=== PATIENT | female | born 1955 | race Caucasian/White ===

== ENCOUNTER 2025-07-15 11:40 | Outpatient (CLI) | payer MEDICARE ==
--- NOTE | 2025-07-15 12:36 | RADIOLOGY REPORT ---
CLINICAL INDICATION: PAIN JOINT RIGHT KNEE TECHNIQUE: 3 radiographic views of the right knee were obtained. Comparison: None FINDINGS/IMPRESSION: There is no evidence of acute fracture or dislocation. The visualized joint space is well maintained. The alignment is anatomical. There is no radiopaque foreign body.
== END 2025-07-15 23:59 | disposition home or self-care (01) ==
LOC: RAD 11:40
PROVIDERS: ATTEND Physician Assistant
DX: M25.561 Pain in right knee (principal)
CPT/HCPCS: 73562

== ENCOUNTER 2025-08-11 08:51 | Outpatient (CLI) | payer MEDICARE ==
--- NOTE | 2025-08-11 10:03 | RADIOLOGY REPORT ---
CLINICAL HISTORY: PAIN IN RIGHT KNEE COMPARISON: None TECHNIQUE:: Multisequence multiplanar MRI images of the right knee were obtained without contrast. FINDINGS: Cruciate ligaments: Mild edema along the course of the ACL, may be due to mucoid degeneration or sprain. No tear. PCL is intact. Extensor mechanism: Quadriceps mechanism and patellar tendon are intact. Mild edema in the superior aspect of Hoffa's fat pad. Collateral ligaments: Medial and lateral collateral ligaments are intact and otherwise unremarkable. Menisci: Medial meniscus is intact. There is intrasubstance signal in the body of the lateral meniscus, appears to extend to the tibial articular surface on the coronal images (series 4, image 14), suspected horizontal tear. Cartilage: Chondral thinning in the medial and lateral compartments. Bones: No acute fracture or focal marrow contusion. Joint fluid: Small to moderate joint effusion. Other: No other significant findings. IMPRESSION: 1. Findings consistent with horizontal tear involving the body of the lateral meniscus. 2. Small to moderate joint effusion. 3. Chondral thinning in the medial and lateral compartments. 4. Mild edema along the course of the ACL, may be due to mucoid degeneration or sprain in the appropriate clinical setting. 5. Mild edema in the superior aspect of Hoffa's fat pad, may be sequelae of impingement.
== END 2025-08-11 23:59 | disposition home or self-care (01) ==
LOC: MRI02 08:51
PROVIDERS: ATTEND Physician Assistant
DX: M25.461 Effusion, right knee (principal); R60.0 Localized edema; M94.8X8 Other specified disorders of cartilage, other site; M25.561 Pain in right knee
CPT/HCPCS: 73721